=== PATIENT | female | born 1950 | race Two or more races ===

== ENCOUNTER 2018-11-08 15:38 | Emergency (ER) | payer OTHER ==
[~2018-11-08] VITALS: Ht 154.9 cm; Wt 72.6 kg
[2018-11-08] MEDS ORDERED: LIPITOR80 MG (15:52)
[2018-11-08] MEDS ORDERED: FORTAMET500 MG (15:52)
[2018-11-08] MEDS ORDERED: GABAPENTIN400 MG (15:52)
[2018-11-08] MEDS ORDERED: ZETIA10 MG (15:53)
[2018-11-08] MEDS ORDERED: LOSARTAN-HCTZ1 EAC1 (15:53)
[2018-11-08] MEDS ORDERED: VERAPAMIL ER180 MG (15:53)
[2018-11-08] MEDS ORDERED: SYNTHROID88 MCG (15:54)
[2018-11-08] MEDS ORDERED: ULTRAM50 MG (15:54)
[2018-11-08] MEDS ORDERED: VITAMIN D5000 UNIT (15:54)
[2018-11-08] MEDS ORDERED: LASIX20 MG (15:55)
[2018-11-08] MEDS ORDERED: MOTRIN IB200 MG (15:55)
== END 2018-11-08 19:40 | disposition home or self-care (01) ==
LOC: ER 15:38
DX: L60.0 Ingrowing nail (principal)

== ENCOUNTER 2020-07-13 06:03 | Day surgery (SDC) | payer OTHER ==
[~2020-07-13 06:03] MED LIST: FORTAMET500 MG; GABAPENTIN400 MG; JANUMET XR 50-1 EACH PO; LASIX20 MG; LIPITOR80 MG; LOSARTAN-HCTZ1 EAC1; MOTRIN IB200 MG; SYNTHROID88 MCG; ULTRAM50 MG; VERAPAMIL ER180 MG; VITAMIN D5000 UNIT; ZETIA10 MG
== END 2020-07-13 17:25 | disposition home or self-care (01) ==
LOC: CIR.AMB 06:03
PROVIDERS: ATTEND Surgery
DX: D24.1 Benign neoplasm of right breast (principal); D24.2 Benign neoplasm of left breast; Z20.822 Contact with and (suspected) exposure to COVID-19